=== PATIENT | male | born 1990 | race Two or more races ===

== ENCOUNTER 2017-10-20 13:45 | Emergency (ER) | payer OTHER ==
[2017-10-20 14:25] LABS: ADD MAN DIFF? NO
[2017-10-20 14:34] LABS: BASO % 1 % (0-3); EOS # 0.1 x10^3/uL (0.0-0.7); EOS % 2 % (0-3); HEMATOCRIT 42.6 % (39.0-53.0); HEMOGLOBIN 14.6 g/dL (13.0-17.5); LYMPH # 1.4 x10^3/uL (1.0-4.8); LYMPH % 21 % (24-48); MEAN CORPUSCULAR HEMOGLOBIN 28 pg (25-35); MEAN CORPUSCULAR HGB CONC 34 g/dL (31-37); MEAN CORPUSCULAR VOLUME 81 fL (79-100); MONO # 0.5 x10^3/uL (0.0-1.1); MONO % 7 % (0-9); NEUT # 4.6 x10^3uL (1.8-7.7); NEUT % 70 % (31-73); PLATELET COUNT 202 x10^3/uL (140-400); RED BLOOD COUNT 5.25 x10^6/uL (4.30-5.70); RED CELL DISTRIBUTION WIDTH 13.3 % (11.5-14.5); WHITE BLOOD COUNT 6.6 x10^3/uL (4.0-11.0)
[2017-10-20 14:52] LABS: ANION GAP 9 (6-14); BLOOD UREA NITROGEN 11 mg/dL (8-26); BUN/CREATININE RATIO 14 (6-20); CALCIUM 9.3 mg/dL (8.5-10.1); CARBON DIOXIDE 28 mmol/L (21-32); CHLORIDE 106 mmol/L (98-107); CREATININE 0.8 mg/dL (0.7-1.3); GFR 114.3; GLUCOSE 104 mg/dL (70-99); SODIUM 143 mmol/L (136-145)
[2017-10-20] MEDS: ONDANSETRON PF 4 MG/2 ML VIAL. IV (14:56)
[2017-10-20] MEDS: fentaNYL PF VIAL 100 MCG/2 ML VIAL IV (14:56)
[2017-10-20] MEDS: KETOROLAC 30 MG/ML INJ. IV (14:56)
[2017-10-20] MEDS: IV NORMAL SALINE 1000ML BAG 1,000 ML IV (15:00)
[2017-10-20 15:03] LABS: ALBUMIN 4.2 g/dL (3.4-5.0); ALBUMIN/GLOBULIN RATIO 1.4 (1.0-1.7); ALK PHOS 80 U/L (46-116); ALT (SGPT) 61 U/L (16-63); AST (SGOT) 27 U/L (15-37); LIPASE 142 U/L (73-393); TOTAL BILIRUBIN 0.7 mg/dL (0.2-1.0); TOTAL PROTEIN 7.3 g/dL (6.4-8.2)
[2017-10-20 15:16] LABS: BILIRUBIN,URINE NEGATIVE (NEG); CLARITY,URINE CLEAR; COLOR,URINE YELLOW; GLUCOSE,URINE NEGATIVE (NEG)
[2017-10-20 15:17] LABS: NITRITE,URINE NEGATIVE (NEG); PH,URINE 6.5; PROTEIN,URINE NEGATIVE (NEG-TRACE); UROBILINOGEN,URINE 0.2 mg/dL (0.2 mg/dL)
[2017-10-20 15:25] LABS: BACTERIA,URINE 0 /HPF (0-FEW); SQUAMOUS EPITHELIAL CELL,UR OCC /LPF; WBC,URINE OCC /HPF (0-4)
== END 2017-10-20 16:50 | disposition home or self-care (01) ==
LOC: ER 16:50
DX: R10.32 Left lower quadrant pain (principal); N50.812 Left testicular pain; R11.2 Nausea with vomiting, unspecified; Z87.442 Personal history of urinary calculi
CPT/HCPCS: 36415; 74176; 76870; 80053; 81001; 83690; 85025; 87086; 96361; 96374; 96375; 99285-25; J1885; J2405; J3010; J7030